=== PATIENT | male | born 1980 | race Caucasian/White ===

== ENCOUNTER 2016-10-28 10:34 | Emergency (ER) | payer OTHER ==
--- NOTE | 2016-10-28 10:42 | EDPHY ---
H & P Time Seen by Provider: 10/28/16 10:42 Constitutional: Initial Vital Signs Temperature (C) 36.7 C 10/28/16 10:44 Heart Rate 63 10/28/16 10:44 Respiratory Rate 16 10/28/16 10:44 Blood Pressure 115/73 10/28/16 10:44 O2 Sat (%) 96 10/28/16 10:44 O2 Delivery Mode Room Air Allergies/Adverse Reactions: No Known Allergies Allergy (Unverified 10/28/16 10:47) Home Medications: Medication Instructions Recorded NK [No Known Home Meds] 10/28/16 Medical Decision Making ED Course/Re-evaluation: CHIEF COMPLAINT: Right elbow laceration HISTORY OF PRESENT ILLNESS: The patient is a 35 y/o male who complains of a laceration on his right elbow while at work today. He accidently cut himself on sheet metal. Denies fever, paresthesias, weakness, numbness, vomiting or other pertinent symptoms. REVIEW OF SYSTEMS: A 10 point review of systems was performed and is negative with the exception of the elements mentioned in the history of present illness. PHYSICAL EXAM: HR, BP, O2 Sat, RR. Temp noted General Appearance: Alert, well hydrated, appropriate, and non-toxic appearing. Head: Atraumatic without scalp tenderness or obvious injury Eyes: Pupils equal, round, reactive to light and accommodation, EOMI, no trauma , no injection. Ears: Clear bilaterally, no perforation, normal landmarks Nose: Atraumatic, no rhinorrhea, clear. Throat: Mucus membranes moist. Neck: Supple, nontender, no lymphadenopathy. Respiratory: No retractions, no distress, no wheezes, and no accessory muscle use. Lungs are clear to auscultation bilaterally. Cardiovascular: Regular rate and rhythm, no murmurs, rubs, or gallops. Good capillary refill all extremities. Gastrointestinal: Abdomen is soft, nontender, non-distended, no masses, no rebound, no guarding, no peritoneal signs. Musculoskeletal: Normal active ROM of all extremities, atraumatic. Neurological: Alert, appropriate, and interactive. Non-focal neuro. Skin: Right elbow 4 cm laceration, superficial, through subcutaneous tissue. No rashes, good turgor, no nodules on palpation. Past medical history: Denies Past surgical history: Femur fracture surgery Family history: Noncontributory Social history: Lives in [place], works for [employer], former smoker DIAGNOSTICS/PROCEDURES/CRITICAL CARE TIME: Procedure: Laceration repair. Verbal consent was obtained from the patient. The patient did not request plastics. The patient is aware that a scar will occur. The 4cm wound laceration on the right elbow was anesthetized using lidocaine with epinephrine. The wound was carefully scrubbed/irrigated with a copious amount of saline. Next, the wound was prepped and draped in sterile fashion and explored to its base with a gloved finger. There were no deep structures involved. No tendon injury was identified. No vascular injury was identified. No foreign bodies were identified. The wound was repaired with Prolene 3-0 sutures. The wound repair was simple. The procedure was performed by myself. Tetanus and antibiotic status were addressed. DIFFERENTIAL DIAGNOSIS: The differential diagnosis for the patient's elbow injury included but was not limited to laceration, fracture, ligamentous injury, tendon injury, contusion. MEDICAL DECISION MAKING: The patient is a 35 y/o male who presents with a 4 cm superficial laceration through the subcutaneous tissue while at work today. His physical exam is otherwise normal. Plan on a laceration repair. See procedure not for the repair. Reassessed patient and discussed return precautions. Patient is comfortable with this plan. - Data Points Medications Given: Discontinued Medications Diphtheria/Tetanus/Acell Pertussis (Boostrix) 0.5 ml IM .ONCE ONE Stop: 10/28/16 10:58 Last Admin: 10/28/16 11:07 Dose: 0.5 ml Departure - Departure Disposition: Home, Routine, Self-Care Clinical Impression: Laceration Laceration of elbow Qualifiers: Encounter type: initial encounter Laterality: right Qualified Code(s): S51.011A - Laceration without foreign body of right elbow, initial encounter Condition: Good Instructions: Care For Your Stitches (ED), Laceration (ED) Additional Instructions: 1. Return to the ED in 10 days for suture removal. Make sure you keep your sutures clean with soap and water. 2. Follow up with your workman's comp provider. 3. Return to the ED if you experience redness near the laceration site, swelling , numbness, fever or other worsening symptoms. Referrals: Cary Funes MD [Medical Doctor] - As per Instructions Report Scribed for: Jose Antonio Henry Report Scribed by: Dasia Alfaro Date of Report: 10/28/16 Time of Report: 10:49
[2016-10-28] MEDS ORDERED: TDAP ADULT 0.5 ML INJ (BOOSTRIX) IM ONE (10:57)
[2016-10-28 11:02] VITALS: RESP 16
[2016-10-28 11:26] VITALS: BP 113/68; PULSE 52; TEMP 98.4; O2SAT 98
== END 2016-10-28 11:20 | disposition home or self-care (01) ==
LOC: CED 10:34
DX: S51.011A Laceration without foreign body of right elbow, initial encounter (principal); Z23 Encounter for immunization; Z87.891 Personal history of nicotine dependence; W26.8XXA Contact with other sharp object(s), not elsewhere classified, initial encounter; Y92.69 Other specified industrial and construction area as the place of occurrence of the external cause; Y99.0 Civilian activity done for income or pay; Y93.89 Activity, other specified